=== PATIENT | male | born 1980 | race Caucasian/White ===

== ENCOUNTER 2016-10-09 03:00 | Inpatient (IN) | payer OTHER ==
[~2016-10-09] VITALS: Ht 185.4 cm; Wt 68.0 kg
--- NOTE | ~2016-10-09 | A ---
[facility] DATE: 10/11/16 Patient: BRITNI MELENDEZ Physician: AFAIRF Address: [address] [place] [address] Room/Bed: [address], Zip: [place] [address] Admit Date: 10/09/16 Date of : [birth year] Height: 6 1 Weight: 149 68.0388 NUTRITIONAL ASSESSMENT: REASON: UNINTENTIONAL WEIGHT LOSS PATIENT ADMITTED FOR SI, DEPRESSION, AND DETOX PMH: HEP C Anthropometrics: HT: 73", WT: 150#, BMI: 19.8, %IBW: 82 Labs: NO LABS AVAILABLE Meds: DESYREL, MVI, DETOX PROTOCOL Assessment: PATIENT IS A 36 Y/O FEMALE ADMITTED FOR SI, DEPRESION, AND DETOX. PATIENT IS CURRENTLY UNEMPLOYED, LIVES WITH A FRIEND, SMOKES 1 PPD, AND HAS DAILY HEROIN AND METH USE. HE HAS A HX OF MULTIPLE INPATIENT PSYCH AND CHEMICAL DEPENDENCY HOSPITALIZATIONS. UPON ADMIT PATIENT STATED A POOR APPETITE WITH A 20# WEIGHT LOSS OVER LAST SEVERAL MONTHS, AND HE HAS NOT BEEN SLEEPING (AVG 2HRS/NIGHT). WEIGHT HX PER I-lighting[employer]CH DOES SHOW A 30# WEIGHT LOSS SINCE HIS LAST ADMIT A YEAR AGO. NURSING REPORTS GOOD PO INTAKES, AND HE IS NOTED TO BE IRRITABLE AND SARCASTIC. THERE ARE NO SKIN OR GI ISSUES NOTED ATT. PATIENT IS ON A REGULAR DIET WITH NO CAFFEINE, LARGE ENTREES, AND ENSURE BID. THIS RD SUSPECTS PATIENT'S WEIGHT AND APPETITE WILL STABILIZE AND POSSIBLY INCREASE FOLLOWING DETOX. Dx: UNINTENTIONAL WEIGHT LOSS R/T DEPRESSION, DRUG USE AEB WEIGHT LOSS, DECREASED APPETITE, NUTRITIONAL RISK POINT Intervention: REGULAR DIET, SUPPLEMENTATION, LARGE PORTIONS, MEDS PER MD, DETOX, PSYCH Monitoring, Evaluation and Goals: 1. ADEQUATE PO INTAKES >50% OF MEALS 2. PREVENT, CORRECT MICRO/MACRO NUTRIENT DEFICIENCIES 3. WEIGHT; PREVENT FURTHER WEIGHT LOSS MONITOR: WEIGHTS, LABS, PO/FLUID INTAKES Recommendations: 1. CONTINUE REGULAR DIET WITH NO CAFFEINE, LARGE PORTION ENTREES, AND ENSURE BID TOLERATED. 2. ENCOURAGE ADEQUATE PO AND FLUID INTAKES 3. OBTAIN WEIGHTS ROUTINELY (EVERY 3-4 DAYS) [facility] DATE: 10/11/16 Patient: BRITNI MELENDEZ Physician: AFAIRF Address: [address] [place] [address] Room/Bed: [facility], Zip: [place] [address] Admit Date: 10/09/16 Date of : [birth year] Height: 6 1 Weight: [address] TO F/U PER PROTOCOL AND PRN R/T PATIENT MILD/MODERATELY COMPROMISED Respectfully, BRIAN BAEZA RD, LD [facility] cc: client file
--- NOTE | ~2016-10-09 | PA ---
Unit #: [id number] #: [id number] Patient: [facility]IT[facility]ENDEZ [id number] [facility] [address] [place] [address] [id number] I MR#: [id number] NAME: BRITNI MELENDEZ. ROOM: P184 Age: 36 Sex: M Admission Date: 10/09/2016 : 1980 Date of Assessment: Attending Physician: Rajendra Rey M.D. Admitting Physician: Rajendra Rey M.D. PSYCHIATRIC ASSESSMENT DATE OF SERVICE 10/09/2016. IDENTIFYING DATA Mr. Melendez is a 36-year-old, single, white male who is a resident of [place], [place] and is known to us from previous encounter, was self-referred to the hospital on voluntary basis. CHIEF COMPLAINT "I'm suicidal." HISTORY OF PRESENT ILLNESS Mr. Melendez is a 36-year-old white male with history of mood disorder and substance abuse, who is known to me from previous encounter, was self-referred to the hospital reporting increasing depression and suicidal ideations, and reports that he is an IV meth and heroin user and he has been using 0.5 g of heroin and 0.5 g of methamphetamine a day and reports increasing depression, anxiety, irritability, restlessness, feelings of hopelessness and helplessness, and suicidal ideations and as such, recommendation for inpatient level of care for safety and stabilization was made and the patient was transferred to us. SUBSTANCE ABUSE HISTORY The patient reports history of IV heroin and IV methamphetamine abuse and dependence and has been using both of them on regular basis. PAST PSYCHIATRIC HISTORY The patient has had history of multiple [facility] and [facility] and review of the medical records indicate that currently he is not active in any treatment program, is not seeing a psychiatrist, and is not taking any psychotropic medications. PAST MEDICAL HISTORY Hepatitis C. ALLERGIES No known medication allergies. CURRENT MEDICATIONS None. PERSONAL AND SOCIAL HISTORY Unit #: [id number] #: [id number] Patient: BRITNI MELENDEZ A 36-year-old white male who reports that he is single, unemployed essentially and has been living with a friend and has poor social support system. MENTAL STATUS EXAMINATION Young white male who was casually dressed with marginal personal hygiene, appears to be in no acute distress or discomfort. He was awake and alert on interaction with intact orientation to time, place, and person. His mood was anxious and depressed with a congruent affect. His speech was slow and restricted in content. His thought processes were disorganized with some looseness of associations and suicidal ideations. His insight and judgment remain significantly impaired. DIAGNOSTIC IMPRESSION Psychiatric: Major depressive disorder, recurrent, moderate, without psychotic features; opioid dependence, moderate and acute withdrawals; methamphetamine dependence, moderate. Medical: Hepatitis C. Stressors: Moderate psychosocial stressors. TREATMENT PLAN 1. The patient has presented with history of mood disorder and substance abuse and dependence and has been decompensating and will need inpatient hospitalization. We will start him back on detox protocol and we will monitor his response and make further adjustments as needed. 2. Supportive therapy was provided to the patient. 3. Safe, structured, and nourishing environment will be provided. ESTIMATED LENGTH OF STAY 5 to 7 days. ABILITY TO HELP SELF Limited. WILLINGNESS TO HELP SELF The patient appears to be willing to help self. STRENGTHS 1. Communicative. 2. Cooperative. PROBLEMS 1. Chronic dysphoric symptoms. 2. Poor social support system. DISCHARGE CRITERIA This will be contingent upon the patient's ability to show resolution of his depression and anxiety, and his ability to stay safe and sober, particularly after discharge from the hospital. Dictated by... Nuha Belcher/sushma TD: 10/09/2016 11:53 JOB #: [id number] Unit #: [id number] #: [id number] Patient: BRITNI MELENDEZ PSYCHIATRIC ASSESSMENT Page 1 of 1 X Rajendra Rey MD X PSYCHIATRIC ASSESSMENT
--- NOTE | ~2016-10-09 | PN ---
Unit #: [id number] #: [id number] Patient: BRITNI POLANCO [id number] [facility] [address] [place] [address] [id number] MR#: [id number] NAME: BRITNI POLANCO. ROOM: 84 Age: 36 Sex: M Admission Date: 10/09/2016 : 1980 Attending Physician: Rajendra Rey M.D. Admitting Physician: Rajendra Rey M.D. Primary Care Physician: Primary Care Physician Kacy CELESTE NOTES DATE October 10, 2016 DISCUSSION Mr. Polanco is a 36-year-old white male, who was seen today and chart was reviewed and the case was discussed with the staff. He has been anxious, withdrawn, and seclusive to himself. Meanwhile, he has been cooperative with the treatment recommendations and he has been taking the medications, and tolerating them fairly well with no reported side effects. MENTAL STATUS EXAMINATION Young white male, who was casually dressed with fair personal hygiene and appears to be in no acute distress or discomfort. He was awake and alert on interaction with intact orientation. His mood was anxious with a congruent affect. His speech is slow and goal-directed. He denies any suicidal or homicidal ideations, and also denies any auditory or visual hallucinations. His insight and judgment remain slightly impaired. TREATMENT PLAN 1. We will continue him on his current medications and treatment protocol, and will monitor his response to the medications, and make further adjustments as needed. 2. We will continue to followup. Dictated by... Nuha Belcher/astrid TD: 10/11/2016 09:14 JOB #: [id number] Unit #: [id number] #: [id number] Patient: BRITNI POLANCO PROGRESS NOTES Page 1 of 1 X Rajendra Rey MD PROGRESS NOTE
--- NOTE | ~2016-10-09 | PN ---
Unit #: [id number] #: [id number] Patient: BRITNI POLANCO [id number] [facility] [address] [place] [address] [id number] I MR#: [id number] NAME: BRITNI POLANCO. ROOM: P184 Age: 36 Sex: M Admission Date: 10/09/2016 : 1980 Attending Physician: Rajendra Rey M.D. Admitting Physician: Rajendra Rey M.D. Primary Care Physician: Primary Care Physician Kacy UNGER PROGRESS NOTES DATE October 11, 2016 DISCUSSION Mr. Polanco is a 36-year-old white male, who was seen today and chart was reviewed and the case was discussed with the staff. He has been doing fairly well and appears to be coming out of the detox without complications and reports improvement in his expressive symptoms. Meanwhile, he has been taking the medications and tolerating them fairly well with no reported side effects. MENTAL STATUS EXAMINATION Young white male, who was casually dressed with a fair personal hygiene and appears to be in no acute distress or discomfort. He was awake and alert on interaction with intact orientation. His mood is anxious and depressed with a congruent affect. His speech is slow and restricted in content. He reports having suicidal ideations but denies any homicidal ideations. His insight and judgment remain slightly impaired. TREATMENT PLAN 1. We will continue him on his current medications and treatment protocol, and will monitor his response to the medications, and make further adjustments as needed. 2. We will continue to followup. Dictated by... Nuha Belcher/astrid TD: 10/12/2016 05:23 JOB #: [id number] Unit #: [id number] #: [id number] Patient: BRITNI POLANCO PEAAMARI PROGRESS NOTES Page 1 of 1 X Rajendra Rey MD PROGRESS NOTE
--- NOTE | ~2016-10-09 | PN ---
Unit #: [id number] #: [id number] Patient: BRITNI POLANCO [id number] [facility] [address] [place] [address] [id number] I MR#: [id number] NAME: BRITNI POLANCO. ROOM: P184 Age: 36 Sex: M Admission Date: 10/09/2016 : 1980 Attending Physician: Rajendra Rey M.D. Admitting Physician: Rajendra Rey M.D. Primary Care Physician: Primary Care Physician Kacy CELESTE NOTES DATE 10/13/2016 DISCUSSION Mr. Polanco is a 36-year-old white male who was seen today and chart was reviewed and case was discussed with the staff. He has been anxious, withdrawn and rather seclusive to himself. Meanwhile, he has been cooperative with treatment recommendations and has been taking medications and tolerating them fairly well with no reported side effects. MENTAL STATUS EXAMINATION Young white male who was casually dressed with fair personal hygiene and appears to be in no acute distress or discomfort. He was awake and alert on interaction with intact orientation. His mood was anxious with congruent affect. His speech is slow and goal-directed. He denies any suicidal or homicidal ideation and also denies any auditory or visual hallucinations. His insight and judgement remains slightly impaired. TREATMENT PLAN 1. Will continue on his current medications and treatment protocol. Will monitor his response to the medications and make further adjustments as needed. 2. Will continue to follow up. Dictated by... Nuha Belcher/angie TD: 10/13/2016 18:04 JOB #: [id number] Unit #: [id number] #: [id number] Patient: BRITNI POLANCO RAMONAAMARI PROGRESS NOTES Page 1 of 1 X Rajendra Rey MD PROGRESS NOTE
--- NOTE | ~2016-10-09 | HP ---
Unit #: [id number] #: [id number] Patient: BRITNI MELENDEZ [id number] [facility] [address] [place] [address] [id number] MR#: [id number] NAME: BRITNI MELENDEZ. ROOM: P184 Age: 36 Sex: M Admission Date: 10/09/2016 : 1980 Attending Physician: Rajendra Rey M.D. Admitting Physician: Rajendra Rey M.D. HISTORY AND PHYSICAL REASON FOR ADMISSION Inpatient psychiatric care. HISTORY OF PRESENT ILLNESS The patient is a pleasant 36-year-old male with increased depression and/or suicidal ideations. No clear plan. He also was an IV drug user. He states that he has not been sleeping well for the past several days, increased anxiety, agitation and therefore [facility]. PAST MEDICAL HISTORY Hepatitis C. PAST SURGICAL HISTORY None. HOME MEDICATIONS None. ALLERGIES No known drug allergies. REVIEW OF SYSTEMS Please see H and P. 12 point was reviewed, noted positive for depression and suicidal ideation. Decreased appetite. SOCIAL HISTORY Positive tobacco, positive heroin, positive amphetamines. Denies all other. PHYSICAL EXAMINATION VITAL SIGNS: Temperature 98.6, pulse 79, respiratory rate 18, blood pressure 118/77. GENERAL: Awake, alert, oriented to person, place, and time. Well built, well nourished. Does not appear to be in any acute distress. HEAD: Atraumatic. Normocephalic. EYES: Bilateral extraocular muscles are normal. Pupils equal, reactive to light and accommodation. Sclerae are normal. No jaundice. NECK: Neck is supple. No neck rigidity. No thyromegaly. No carotid bruit. No JVD. Oral mucosa is moist. CHEST: Bilateral vesicular breathing. Clear to auscultation. No basilar rales. CARDIOVASCULAR: S1 and S2 normal. No murmur, no gallop, no rub. Unit #: [id number] #: [id number] Patient: BRITNI MELENDEZ ABDOMEN: Soft, nontender. No organomegaly. Bowel sounds are normal. No hernia, no masses, no rebound, no guarding. EXTREMITIES: No pitting edema. No calf tenderness. Extremity pulses, including dorsalis pedis, have good volume. BACK: Normal spine curvature. No spine tenderness. No costovertebral angle tenderness. INSIDE B2B SALES: Cranial nerves normal bilaterally. Motor function bilaterally symmetric and normal. Sensory system normal. SKIN: Warm and dry. INITIAL IMPRESSION 1. Acute psychiatric inpatient admission. 2. IV drug abuse. 3. Hepatitis C. 4. Major depressive disorder. PLAN As per psychiatrist, medical condition stable. There are no medical contraindications to the patient participating in active care while here at [facility]. Dictated by... Jamil Leon M.D. MILANA/sushma TD: 10/09/2016 16:57 JOB #: [id number] HISTORY AND PHYSICAL Page 1 of 1 X Jamil Loen MD X HISTORY AND PHYSICAL
--- NOTE | ~2016-10-09 | PN ---
Unit #: [id number] #: [id number] Patient: BRITNI POLANCO [id number] [facility] [address] [place] [address] [id number] I MR#: [id number] NAME: BRITNI POLANCO. ROOM: P184 Age: 36 Sex: M Admission Date: 10/09/2016 : 1980 Attending Physician: Rajendra Rey M.D. Admitting Physician: Rajendra Rey M.D. Primary Care Physician: Primary Care Physician Kacy NUGER PROGRESS NOTES DATE 10/12/2016 DISCUSSION Mr. Polanco is a 36-year-old, white male who was seen today and chart was reviewed and case was discussed with the staff. He has been doing fairly well and has been showing improvement in his depression and anxiety as he has been cooperative with the treatment recommendations. He has been taking the medication and tolerating them fairly well with no reported side effects. MENTAL STATUS EXAM Young white male who was casually dressed with fair personal hygiene, appears to be in no acute distress or discomfort. He was awake and alert on interaction with intact orientation. His mood was anxious with congruent affect. He denies any suicidal or homicidal ideation. His insight and judgement remains slightly impaired. TREATMENT PLAN 1. We will continue him on his current medications and treatment protocol. We will monitor his response and make further adjustments as needed. 2. We will continue to follow up. Dictated by... Nuha Belcher/trinity TD: 10/12/2016 21:47 JOB #: [id number] Unit #: [id number] #: [id number] Patient: BRITNI POLANCO PROGRESS NOTES Page 1 of 1 X Rajendra Rey MD PROGRESS NOTE
--- NOTE | ~2016-10-09 | DS ---
Unit #: [id number] #: [id number] Patient: [facility]DEZ [id number] [facility] [address] [place] [address] [id number] I MR#: [id number] NAME: BRITNI MELENDEZ. ROOM: P184 Age: 36 Sex: M Admission Date: 10/09/2016 : 1980 Discharge Date: 10/14/2016 Attending Physician: Rajendra Rey M.D. Primary Care Physician: Primary Care Physician No DISCHARGE SUMMARY IDENTIFICATION DATA Mr. Melendez is a 36-year-old white male who is a resident of [place], [place], and is known to me from previous encounter and was self-referred to the hospital on a voluntary basis. DISCHARGE DIAGNOSES PSYCHIATRIC: Opioid dependence, moderate, in acute withdrawal. Opioid-induced mood disorder. MEDICAL: None. STRESSORS: Moderate psychosocial stressor. HISTORY OF PRESENT ILLNESS Same as in initial psychiatric evaluation. PAST PSYCHIATRIC HISTORY Same as in initial psychiatric evaluation. PAST MEDICAL HISTORY Same as in initial psychiatric evaluation. HOSPITAL COURSE The patient was admitted to the adult chemical dependence unit at [facility] and was oriented to the hospital environment. Routine p.r.n. medications were initiated, and he was started on opioid detox protocol and was closely monitored. He was seen to be anxious, restless, and in distress or discomfort as he was currently detoxing and was cooperative with treatment recommendations and was taking the medications regularly and was tolerating them fairly well and was able to come out of the detox without any complications and was willing to continue treatment on outpatient basis. It was decided that he will be kept on her current medications and was discharged home. We will continue treatment on outpatient basis. DISCHARGE MEDICATIONS None. CONDITION AT DISCHARGE Stable. PROGNOSIS Fair. Unit #: [id number] #: [id number] Patient: BRITNI MELENDEZ Dictated by... Rajendra Rey M.D. IAA/bzg TD: 10/27/2016 12:11 JOB #: [id number] DISCHARGE SUMMARY Page 1 of 1 X Rajendra Rey MD X DISCHARGE SUMMARY
[2016-10-11 09:43] LABS: URINE APPEARANCE CLEAR; URINE BILIRUBIN NEG (NEG); URINE BLOOD NEG (NEG); URINE COLOR YELLOW; URINE GLUCOSE NEG (NEG); URINE KETONE NEG (NEG); URINE LEUKOCYTE ESTERASE NEG (NEG); URINE NITRATE NEG (NEG); URINE PH 7.5 (5-8); URINE PROTEIN NEG (NEG); URINE SPECIFIC GRAVITY 1.013 (1.003-1.035)
[2016-10-11 10:09] LABS: AMPHETAMINE POS (NEG); BARBITURATES NEG (NEG); BENZODIAZEPINES NEG (NEG); COCAINE NEG (NEG); MARIJUANA NEG (NEG); OPIATES NEG (NEG); TRICYCLIC ANTIDEPRESSANTS NEG (NEG); U METHADONE NEG (NEG)
== END 2016-10-14 11:11 | disposition home or self-care (01) | DRG 885 ==
LOC: P1E 05:12
PROVIDERS: Psychiatry & Neurology Psychiatry
PROC: HZ2ZZZZ Detoxification Services for Substance Abuse Treatment (ICD-10-PCS; principal; 2016-10-09)
DX: F33.1 Major depressive disorder, recurrent, moderate (principal); F15.20 Other stimulant dependence, uncomplicated; F11.23 Opioid dependence with withdrawal; F17.200 Nicotine dependence, unspecified, uncomplicated; B19.20 Unspecified viral hepatitis C without hepatic coma
CPT/HCPCS: 80307; 81003